=== PATIENT | female | born 1975 | race Caucasian/White ===

== ENCOUNTER → 2020-02-24 | Outpatient (CLI) | payer MEDICARE, OTHER ==
[2014-03-27 10:15] VITALS: BP 126/80
[~2020-02-24] MED LIST: ALPR1TAB PO; ALPR1TAB2 PO; DULO60CA6 PO; LEVO25TA55 PO; ZOLP5TAB PO
== END | disposition home or self-care (01) ==
LOC: LAB 14:29
PROVIDERS: ATTEND Surgery
DX: Z20.828 Contact with and (suspected) exposure to other viral communicable diseases (principal)
CPT/HCPCS: U0003-CS

== ENCOUNTER → 2020-02-27 | Day surgery (SDC) | payer MEDICARE, OTHER ==
[2014-03-27 10:15] VITALS: BP 126/80
[~2020-02-27] MED LIST changes: +LIDOCAINE 1% Multi-Dose 20 ML VIAL. INJ ONE; +LIDOCAINE 1%/EPI 1:100,000 20 ML VIAL. ONE
--- NOTE | 2020-02-27 11:59 | DISCH ---
DISCHARGE INSTRUCTIONS Condition on Discharge Condition on Discharge: Stable Activity After Discharge Activity Instructions for Disc: Activity as tolerated Diet after Discharge Diet after Discharge: Regular Wound Incision Care Wound/Incision Care: Ice to area for comfort, May get incision wet Other wound/incision instructi: May shower in 24 hours Contacting the after DC Call your doctor for: If your condition worsens Follow-Up Follow up with: Dr. Araujo in 2 weeks SERAFIN ARAUJO MD Feb 27, 2020 11:59
--- NOTE | 2020-03-01 14:07 | PATHOLOGY ---
[facility] Accession Number: [id number] . 01 Material submitted: . PART A: back - RIGHT LOWER BACK MASS. Modifiers: right, lower PART B: back - LEFT LOWER BACK MASS. Modifiers: left, lower . 01 Clinical history: . EXC LOWER BACK LIOPMA X2 . 02 Diagnosis: A. Segment of fibroadipose tissue, right lower back mass: - Lipoma. . B. Segments of fibroadipose tissue, left lower back mass: - Lipoma. ([facility] 03/01/2020) [facility] 03/01/2020 0859 Local . 02 Comment: There is no evidence of malignancy. ([facility] 03/01/2020) . 02 Electronically signed: . Abad Hilario MD, Pathologist NPI- [id number] . 01 Gross description: . A. Received in formalin labeled "Novello, Trang, right lower back mass" is a yellow-gardner lobulated soft tissue mass measuring 3.2 x 3.0 x 1.3 cm. The external surface is inked black and the specimen is sectioned to reveal a aijmoj-qud-azv homogeneous cut surface without hemorrhage or necrosis. [employer] tissue is submitted in cassettes A1-A2. . B. Received in formalin labeled "Novello, Trang, left lower back mass" are multiple yellow-gardner lobulated soft tissue fragments measuring in aggregate 3.5 x 3.2 x 1.2 cm. The specimen is not inked due to its fragmented nature. Upon sectioning, the cut surfaces are yellow-gardner and homogeneous without hemorrhage or necrosis. The specimen is entirely submitted in cassettes B1-B2. [place] [place] [facility] 03/01/2020 0724 Local . 02 Pathologist provided ICD-10: D17.1 . 02 CPT . 551585, [id number] Specimen Comment: A courtesy copy of this report has been sent to [phone] Specimen Comment: [id number] Specimen Comment: Report sent to / DR SAINI Specimen Comment: A duplicate report has been generated due to demographic updates. Performed at: 01 [facility] [id number] [facility] [address] [place] [id number] MD Diego Torres MD Phone: [phone] Performed at: [facility] [address] [place], [place] [id number] MD Abad Hilario MD Phone: [phone]
--- NOTE | 2020-03-03 12:45 | PDOC4 ---
Operative Note Operative Note Date: 02/27/2020 Preoperative diagnosis: Lower back mass x2 Postoperative diagnosis: Same Procedure: Excision of lower back masses x2 Specimen: Lower back masses x2 Surgeon: Thiago Dictation: Patient is a 44-year-old female is complained of 2 masses on her lower back one on the right one on the left side increasing in size and causing some discomfort. Procedure of excision of mass was explained to the patient detail was benefits were also discussed including bleeding infection alternatives to this procedure also discussed with the patient who seemed to understand and gave both verbal and written consent to have the procedure performed. Patient was taken to the minors procedure room placed in the prone positioning her back was prepped and draped usual sterile fashion using ChloraPrep. Attention was turned to the right lower back mass was the area around the mass was injected with 1% lidocaine with epinephrine once there was an anesthetized and incision was made with 15 blade scalpel is carried down through the subcutaneous tissue excising the mass sharply which appeared to be a lipoma. The wound was then closed in a single layer of 4-0 subcuticular Monocryl Mastisol Steri-Strips and island dressing were applied to that area. Tensions were then turned to the left lower back area over the mass was injected with 1% lidocaine with epinephrine incision was made 15 blade scalpel is carried down through the subcutaneous tissue using sharp dissection with a scalpel and Metzenbaum scissors to sharply excise the mass on the left side. The wound was then closed in a single layer 4-0 subcuticular Monocryl Mastisol Steri-Strips and island dressings were applied. Patient tolerated procedure well was discharged home in stable condition. All sponge instrument needle counts listed as correct estimated blood loss 10 mL SERAFIN ARAUJO MD Mar 03, 2020 12:45
== END | disposition home or self-care (01) ==
LOC: SURG 10:47
PROVIDERS: ATTEND Surgery
DX: D17.79 Benign lipomatous neoplasm of other sites (principal); Z79.899 Other long term (current) drug therapy
CPT/HCPCS: 21931; 88304; J3490

== ENCOUNTER → 2020-04-21 | Day surgery (SDC) | payer MEDICARE, OTHER ==
[~2020-04-21] MED LIST changes: -LIDOCAINE 1% Multi-Dose 20 ML VIAL. INJ ONE; +LIDOCAINE 1%/EPI 1:100,000 20 ML VIAL. INJ ONE
[2020-04-21 11:30] VITALS: BP 146/78
--- NOTE | 2020-04-21 12:21 | PDOC4 ---
Operative Note Operative Note Date: 2019 at 1219 Preoperative diagnosis: Lipoma lower back Postoperative diagnosis: Same Procedure: Excision of lipoma lower back Surgeon: Thiago Specimen: Lipoma Dictation: Patient is 44-year-old female with complaints of an enlarging mass on her lower back that is painful at times. Procedure of excision of mass was explained to the patient detail risk benefits were also discussed including bleeding and infection alternatives to this procedure also discussed with patient who seemed to understand and gave both verbal and written consent to have the procedure performed. Patient was taken to the minors room placed in the prone position her lower back was prepped and draped usual sterile fashion using ChloraPrep. An area over the mass was injected with 1% lidocaine with epinephrine incision was made with 15 blade scalpel this carried down through the subcutaneous tissue down to the palpable mass which was excised sharply with Metzenbaum scissors and sent for pathology size of mass was approximately 3 x 3 cm. Wound was closed in 2 layers deep layer running 3-0 Vicryl and the skin was reapproximated for subcuticular Monocryl Mastisol Steri-Strips and island dressings were applied. Patient was discharged home in stable condition to follow-up in 2 weeks. All sponge instrument needle counts listed as correct estimated blood loss 10 mL SERAFIN ARAUJO MD Apr 21, 2020 12:21
--- NOTE | 2020-04-21 12:23 | DISCH ---
DISCHARGE INSTRUCTIONS Condition on Discharge Condition on Discharge: Stable Activity After Discharge Activity Instructions for Disc: Activity as tolerated Diet after Discharge Diet after Discharge: Regular Wound Incision Care Wound/Incision Care: Ice to area for comfort, May get incision wet Other wound/incision instructi: May shower in 24 hours Contacting the after DC Call your doctor for: If your condition worsens Follow-Up Follow up with: Follow-up Dr. Araujo in 2 weeks SERAFIN ARAUJO MD Apr 21, 2020 12:23
--- NOTE | 2020-04-23 22:06 | PATHOLOGY ---
[facility] Accession Number: [id number] . 01 Material submitted: . back - LEFT LOWER BACK LIPOMA. Modifiers: left, lower . 02 Diagnosis: "Left lower back lipoma", excision: - Mature adipose tissue consistent with lipoma. ([facility]; 04/23/2020) [facility] 04/23/2020 1527 Local . 02 Electronically signed: . Arianna Pratt MD, Pathologist NPI- [id number] . 01 Gross description: . Received in formalin labeled "Roselialo, Trang, left lower back lipoma" is a yellow-gardner lobulated soft tissue mass measuring 8.5 x 5.3 x 2.3 cm. The external surface is inked black. The specimen is sectioned to reveal a yellow-gardner homogeneous cut surface without hemorrhage or necrosis. Rn Interventional sections are submitted in cassettes A1-A4. ([facility] [place] 04/22/2020) [facility] 04/22/2020 1606 Local . 02 Pathologist provided ICD-10: D17.1 . 02 CPT . 403180 Specimen Comment: A courtesy copy of this report has been sent to [phone] Specimen Comment: Report sent to Performed at: 01 [facility] [address], [place], [place] [id number] MD Owen Jiménez MD Phone: [phone] Performed at: 02 [facility] [address] [place], [place] [id number] MD Abad Hilario MD Phone: [phone]
== END | disposition home or self-care (01) ==
LOC: SURG 10:14
PROVIDERS: ATTEND Surgery
DX: D17.1 Benign lipomatous neoplasm of skin and subcutaneous tissue of trunk (principal); E03.9 Hypothyroidism, unspecified; E66.9 Obesity, unspecified; F41.9 Anxiety disorder, unspecified; F32.9 Major depressive disorder, single episode, unspecified; Z90.49 Acquired absence of other specified parts of digestive tract; Z79.899 Other long term (current) drug therapy; Z98.890 Other specified postprocedural states
CPT/HCPCS: 21931; 88304; J3490